=== PATIENT | male | born 1985 ===

== ENCOUNTER 2019-05-27 10:51 | Emergency (ER) | payer OTHER ==
[~2019-05-27] VITALS: Ht 182.9 cm; Wt 94.8 kg
[2019-05-27] MEDS ORDERED: ZITHROMAX500 MG PO (13:38)
== END 2019-05-27 13:46 | disposition home or self-care (01) ==
LOC: ER 10:51
DX: J02.8 Acute pharyngitis due to other specified organisms (principal)

== ENCOUNTER 2021-05-01 19:24 | Emergency (ER) | payer OTHER ==
[~2021-05-01] VITALS: Ht 177.8 cm; Wt 90.7 kg
[~2021-05-01 19:24] MED LIST: ZITHROMAX500 MG PO
== END 2021-05-01 22:47 ==
LOC: ER 19:24
DX: S61.213A Laceration without foreign body of left middle finger without damage to nail, initial encounter (principal); W26.8XXA Contact with other sharp object(s), not elsewhere classified, initial encounter; Y92.89 Other specified places as the place of occurrence of the external cause

== ENCOUNTER 2021-07-20 12:53 | Emergency (ER) | payer OTHER ==
[~2021-07-20] VITALS: Ht 182.9 cm; Wt 86.2 kg
== END 2021-07-20 14:56 | disposition left against medical advice (07) ==
LOC: ER 12:53
DX: R42 Dizziness and giddiness (principal)